=== PATIENT | male | born 1950 | race Caucasian/White ===

== ENCOUNTER 2019-12-17 01:33 | Outpatient (CLI) | payer MEDICARE, SELFPAY ==
[2019-12-17 19:02] LABS: SARS-CoV-2 RNA PCR Negative
== END 2019-12-17 01:34 | disposition home or self-care (01) ==
LOC: ANHCOVIDDT 01:37
PROVIDERS: Visit Provider Internal Medicine Gastroenterology
DX: Z01.812 Encounter for preprocedural laboratory examination (principal); Z20.828 Contact with and (suspected) exposure to other viral communicable diseases
CPT/HCPCS: 87635; C9803; U0003

== ENCOUNTER 2019-12-19 01:33 | Day surgery (SDC) | payer MEDICARE, SELFPAY ==
[2019-12-16 15:28] VITALS: BMI 27.3
[2019-12-19] MEDS: LACTATED RINGERS 1,000 ML 150 ML IV CONT (08:06)
--- NOTE | 2019-12-19 08:06 | P.CONGI_ITS ---
Assessment and Plan Assessment and plan (1) Dysphagia: Code(s): R13.10 - Dysphagia, unspecified Status: Acute Assessment and Plan: Patient has difficulty swallowing including recent food impaction passed spon taneously. All suspicious for narrowing of the esophagus. Plan is for EGD to assess more thoroughly. Possibly for esophageal dilatation as well. Further recommendations will be given after endoscopy. GI Consult Note Consult date/time: 12/19/19 08:06 HPI: John Iniguez is a 69 year old male Seen in evaluation at the request of Steve Jeter. patient has a history of a food impaction 1 week ago. This passed spontaneously. Patient has intermittent dysphagia over the last 1 year. Food will typically pass on its own. He notices difficulty with solid more so than liquids. He has had difficulty with bread hanging up in the mid chest. Patient denies any heartburn or abdominal pain. Past medical history significant for diabetes, spinal stenosis. He uses a walker to ambulate. Review of Systems Review of Systems: All systems reviewed & are unremarkable except as noted in HPI and below PMFSH Social History Social History Smoking packs per day: 3 Smoking cigarettes per day: 60.0 Years smoked: 20 Smoking pack-years: 60.00 Smoking status: Former smoker Tobacco type: cigarettes Alcohol intake: never Substance use: never Substance use type: does not use Living arrangements: with family Spiritual care concerns: No Meds Home Medications and Allergies Home Medications Medication Instructions Recorded Confirmed Type amlodipine 10 mg PO DAILY 12/16/19 12/16/19 History atorvastatin 40 mg PO DAILY 12/16/19 12/16/19 History cilostazol 100 mg PO DAILY 12/16/19 12/19/19 History iiinzjdnlay-zroolbjwv-fswkayuz 1 inh INHALATION DAILY 12/16/19 12/16/19 History [Trelegy Ellipta] irbesartan 300 mg PO DAILY 12/16/19 12/16/19 History isosorbide mononitrate 30 mg PO DAILY 12/16/19 12/16/19 History metformin 500 mg PO DAILY 12/16/19 12/16/19 History metoprolol succinate 100 mg PO DAILY 12/16/19 12/16/19 History ropinirole 0.5 mg PO DAILY 12/16/19 12/19/19 History Allergies Allergy/AdvReac Type Severity Reaction Status Date / Time No Known Allergies Allergy Verified 12/19/19 07:51 Exam Narrative: Exam Narrative: Physical exam reveals patient to be alert. Vital signs stable. HEENT exam unremarkable. Lungs are clear to auscultation and percussion. Heart without murmur or extra sounds. Abdominal exam bowel sounds are present soft nontender with no organomegaly. Digital external rectal exam is normal.
[2019-12-19 08:09] VITALS: BP 142/80; PULSE 65; RESP 20; TEMP 36.6; O2SAT 93
--- NOTE | 2019-12-19 08:32 | WPDANESEPPF ---
Anes - Initial Pre Proc Eval Procedure: Operation Date: 12/19/19 08:30 Proposed Procedures p Esophagogastroduodenoscopy - Fam Guo MD Date/Time: 12/19/19 08:32 Surgeon: Fam Guo MD Pre Op Diagnosis: Dysphagia Patient Data Age: 69 Gender: M Height: 5 ft 11 in Weight: 88.5 kg Last Vital Signs Temp 97.8 F 12/19/19 08:09 Pulse 65 12/19/19 08:09 Resp 20 12/19/19 08:09 BP 142/80 H 12/19/19 08:09 Pulse Ox 93 12/19/19 08:09 Allergies Allergy/AdvReac Type Severity Reaction Status Date / Time No Known Allergies Allergy Verified 12/19/19 07:51 Home Medications Medication Instructions Recorded Confirmed Type amlodipine 10 mg PO DAILY 12/16/19 12/16/19 History atorvastatin 40 mg PO DAILY 12/16/19 12/16/19 History cilostazol 100 mg PO DAILY 12/16/19 12/19/19 History achbgjcruya-xwvzqsnxf-jbibhmvd 1 inh INHALATION DAILY 12/16/19 12/16/19 History [Trelegy Ellipta] irbesartan 300 mg PO DAILY 12/16/19 12/16/19 History isosorbide mononitrate 30 mg PO DAILY 12/16/19 12/16/19 History metformin 500 mg PO DAILY 12/16/19 12/16/19 History metoprolol succinate 100 mg PO DAILY 12/16/19 12/16/19 History ropinirole 0.5 mg PO DAILY 12/16/19 12/19/19 History Patient hx anesthesia problems: none Family hx anesthesia problems: none [facility] Past Medical History Medical History (Updated 12/19/19 @ 08:31 by Eamon Colon MD) CAD (coronary artery disease) COPD (chronic obstructive pulmonary disease) Diabetes Hyperlipidemia Hypertension Surgical History Surgical History (Updated 12/19/19 @ 08:31 by Eamon Colon MD) S/P CABG x 3 Stented coronary artery Social History Social History Smoking packs per day: 3 Smoking cigarettes per day: 60.0 Years smoked: 20 Smoking pack-years: 60.00 Smoking status: Former smoker Tobacco type: cigarettes Alcohol intake: never Substance use: never Substance use type: does not use Living arrangements: with family Spiritual care concerns: No Anes - Eval Final PreProcedure Day of Procedure 12/19/19 08:32 Patient weight: overweight Heart: regular rate and rhythm Lungs: clear to auscultation Airway: Mallampati scale class III Neurological: alert and oriented Last oral intake: >/= 8 hours ASA classification: III Emergent: no Anesthetic plan: proceed Anesthesia type and monitoring: general GIVS and standard monitoring Informed Consent: The patient's anesthetic plan and its attendant risks and benefits were discussed with the patient/family/POA. Questions were solicited and answers provided to the satisfaction of the patient/family/POA.
[2019-12-19 09:03] VITALS: BP 82/6; PULSE 57; RESP 20; O2SAT 93
[2019-12-19 09:13] VITALS: BP 111/74; PULSE 62; RESP 18; O2SAT 94
[2019-12-19 09:15] LABS: Glucose Point of Care 103 (65-105)
[2019-12-19 09:23] VITALS: BP 124/70; PULSE 62; RESP 18; O2SAT 96
== END 2019-12-19 09:55 | disposition home or self-care (01) ==
PROVIDERS: PCP Internal Medicine; Visit Provider Internal Medicine Gastroenterology
PROC: 0DJ08ZZ Inspection of Upper Intestinal Tract, Via Natural or Artificial Opening Endoscopic (ICD-10-PCS; CPT 43235; principal; 2019-12-19 08:30)
DX: K22.2 Esophageal obstruction (principal); K29.80 Duodenitis without bleeding; E11.9 Type 2 diabetes mellitus without complications; M48.00 Spinal stenosis, site unspecified; Z87.891 Personal history of nicotine dependence
CPT/HCPCS: 43450; 43239; 87081; J2704; J7120

== ENCOUNTER 2020-02-14 01:45 | Outpatient (CLI) | payer MEDICARE, SELFPAY ==
[2020-02-14 20:00] LABS: SARS-CoV-2 RNA PCR Negative
== END 2020-02-14 01:46 | disposition home or self-care (01) ==
LOC: ANHCOVIDDT 01:45
PROVIDERS: Visit Provider Internal Medicine Gastroenterology
DX: Z01.812 Encounter for preprocedural laboratory examination (principal); Z20.828 Contact with and (suspected) exposure to other viral communicable diseases
CPT/HCPCS: 87635; C9803; U0003

== ENCOUNTER 2020-02-17 02:16 | Day surgery (SDC) | payer MEDICARE, SELFPAY ==
[2020-02-12 12:41] VITALS: BMI 27.3
[2020-02-17 07:29] VITALS: BP 163/93; PULSE 81; RESP 16; TEMP 36.8; O2SAT 93
[2020-02-17] MEDS: LACTATED RINGERS 1,000 ML 150 ML IV CONT (07:41)
--- NOTE | 2020-02-17 07:42 | P.PNAN_ITS ---
Anes - Initial Pre Proc Eval Procedure: Operation Date: 02/17/20 08:30 Proposed Procedures p Esophagogastroduodenoscopy - Fam Guo MD Date/Time: 02/17/20 07:42 Surgeon: Fam Guo MD Pre Op Diagnosis: Dysphagia/ Esophageal Stricture Patient Data Age: 69 Gender: M Height: 1.8 m Weight: 91 kg Last Vital Signs Temp 36.8 C 02/17/20 07:29 Pulse 81 02/17/20 07:29 Resp 16 02/17/20 07:29 BP 163/93 H 02/17/20 07:29 Pulse Ox 93 02/17/20 07:29 Allergies Allergy/AdvReac Type Severity Reaction Status Date / Time No Known Allergies Allergy Verified 02/17/20 07:18 Home Medications Medication Instructions Recorded Confirmed Type amlodipine 10 mg PO DAILY 12/16/19 02/12/20 History atorvastatin 40 mg PO DAILY 12/16/19 02/12/20 History goqvsxrfmjw-idvwmosif-hpovcctd 1 inh INHALATION DAILY 12/16/19 02/17/20 History [Trelegy Ellipta] irbesartan 300 mg PO DAILY 12/16/19 02/12/20 History isosorbide mononitrate 30 mg PO DAILY 12/16/19 02/12/20 History metformin 500 mg PO DAILY 12/16/19 02/12/20 History metoprolol succinate 100 mg PO DAILY 12/16/19 02/12/20 History ropinirole 0.5 mg PO DAILY 12/16/19 02/12/20 History Patient hx anesthesia problems: none Family hx anesthesia problems: none [facility] Past Medical History Medical History (Updated 12/19/19 @ 08:31 by Eamon Colon MD) CAD (coronary artery disease) COPD (chronic obstructive pulmonary disease) Diabetes Hyperlipidemia Hypertension Surgical History Surgical History (Updated 12/19/19 @ 08:31 by Eamon Colon MD) S/P CABG x 3 Stented coronary artery Social History Social History Smoking packs per day: 3 Smoking cigarettes per day: 60.0 Years smoked: 30 Smoking pack-years: 90.00 Smoking status: Former smoker Tobacco type: cigarettes Alcohol intake: never Substance use: never Substance use type: does not use Living arrangements: with family Spiritual care concerns: No Anes - Eval Final PreProcedure Day of Procedure 02/17/20 07:42 Patient weight: overweight Heart: regular rate and rhythm Lungs: clear to auscultation and normal air movement Airway: Mallampati scale class II Neurological: alert and oriented Last oral intake: >/= 8 hours ASA classification: III Emergent: no Anesthetic plan: proceed Anesthesia type and monitoring: general GIVS Informed Consent: The patient's anesthetic plan and its attendant risks and benefits were discussed with the patient/family/POA. Questions were solicited and answers provided to the satisfaction of the patient/family/POA.
[2020-02-17 07:49] LABS: Glucose Point of Care 115 (65-105)
--- NOTE | 2020-02-17 07:55 | WPDGICN ---
Assessment and Plan Assessment and plan (1) Dysphagia: Code(s): R13.10 - Dysphagia, unspecified Status: Acute (2) Esophageal stricture: Code(s): K22.2 - Esophageal obstruction Status: Acute Assessment and Plan: Patient has a known esophageal ulcer and stricture in the midesophagus. This presumed to be from acid reflux. Other etiologies can't are not excluded plan is for surveillance EGD at this time. Patient continues to have difficulty swallowing. Additional dilatation may be required. For the and present interval would advise continuing proton pump inhibitor on a daily basis. Avoid nonsteroidal anti-inflammatory agents. Soft diet till EGD can be accomplished. GI Consult Note Consult date/time: 02/17/20 07:55 HPI: John Iniguez is a 69 year old male Presents for follow-up EGD. Patient complains of dysphagia. He states that food will hang up in the mid substernal portion of the chest. He states his happens more often with solids than with liquids. He has minimal discomfort at this time. Patient does have a past history endoscopy revealed a mid esophageal ulceration is what L as mid esophageal stricture ring. Patient has been maintained on Prilosec 20 mg p.o. daily since that time. He will present today after 2 months of omeprazole to see if this continues to improve. Patient's family history is noncontributory. Review of Systems Review of Systems: All systems reviewed & are unremarkable except as noted in HPI and below PMFSH Past Medical History Medical History CAD (coronary artery disease) COPD (chronic obstructive pulmonary disease) Diabetes Hyperlipidemia Hypertension Surgical History Surgical History (Updated 12/19/19 @ 08:31 by Eamon Colon MD) S/P CABG x 3 Stented coronary artery Social History Social History Smoking packs per day: 3 Smoking cigarettes per day: 60.0 Years smoked: 30 Smoking pack-years: 90.00 Smoking status: Former smoker Tobacco type: cigarettes Alcohol intake: never Substance use: never Substance use type: does not use Living arrangements: with family Spiritual care concerns: No Meds Home Medications and Allergies Home Medications Medication Instructions Recorded Confirmed Type amlodipine 10 mg PO DAILY 12/16/19 02/12/20 History atorvastatin 40 mg PO DAILY 12/16/19 02/12/20 History ckjfiphhcec-dtbrccpso-dmkhwiyf 1 inh INHALATION DAILY 12/16/19 02/17/20 History [Trelegy Ellipta] irbesartan 300 mg PO DAILY 12/16/19 02/12/20 History isosorbide mononitrate 30 mg PO DAILY 12/16/19 02/12/20 History metformin 500 mg PO DAILY 12/16/19 02/12/20 History metoprolol succinate 100 mg PO DAILY 12/16/19 02/12/20 History ropinirole 0.5 mg PO DAILY 12/16/19 02/12/20 History Allergies Allergy/AdvReac Type Severity Reaction Status Date / Time No Known Allergies Allergy Verified 02/17/20 07:18 Vital Signs Vital Signs - 24 hr 02/17/20 07:29 Temperature 98.2 F Pulse Rate 81 Respiratory Rate 16 Blood Pressure 163/93 H Pulse Oximetry 93 Exam Narrative: Exam Narrative: Physical exam reveals patient be alert. Vital signs stable. HEENT exam is unremarkable. Lungs are clear to auscultation and percussion. Heart is without murmur or extra sounds. Abdominal exam bowel sounds are present soft nontender with no organomegaly. Digital external rectal exam normal.
[2020-02-17] MEDS: BENZOCAINE (*SP) 60 ML SPRAY CAN (HURRICAINE) 1 SPRAY MUCOUS MEM (08:28)
[2020-02-17 08:37] VITALS: BP 151/72; PULSE 84; RESP 16; O2SAT 95
[2020-02-17 08:47] VITALS: BP 152/78; PULSE 83; RESP 16; O2SAT 95
[2020-02-17 08:57] VITALS: BP 146/78; PULSE 82; RESP 16; O2SAT 95
== END 2020-02-17 09:17 | disposition home or self-care (01) ==
PROVIDERS: Visit Provider Internal Medicine Gastroenterology
PROC: 0DJ08ZZ Inspection of Upper Intestinal Tract, Via Natural or Artificial Opening Endoscopic (ICD-10-PCS; CPT 43235; principal; 2020-02-17 08:30)
DX: R13.10 Dysphagia, unspecified (principal); K22.2 Esophageal obstruction; K22.10 Ulcer of esophagus without bleeding; Z79.01 Long term (current) use of anticoagulants; I25.10 Atherosclerotic heart disease of native coronary artery without angina pectoris; J44.9 Chronic obstructive pulmonary disease, unspecified; E11.9 Type 2 diabetes mellitus without complications; I10 Essential (primary) hypertension; E78.5 Hyperlipidemia, unspecified; Z95.1 Presence of aortocoronary bypass graft; Z87.891 Personal history of nicotine dependence; Z95.5 Presence of coronary angioplasty implant and graft; Z79.84 Long term (current) use of oral hypoglycemic drugs
CPT/HCPCS: 43450; 43235; J2704; J7120

== ENCOUNTER 2020-10-02 03:14 | Day surgery (SDC) | payer MEDICARE, SELFPAY ==
[2020-09-24 10:30] VITALS: BMI 26.1
--- NOTE | 2020-10-02 10:08 | WPDANESEPPF ---
Anes - Initial Pre Proc Eval Procedure: Operation Date: 10/02/20 11:30 Proposed Procedures p Esophagogastroduodenoscopy - Fam Guo MD Date/Time: 10/02/20 10:08 Surgeon: Fam Guo MD Pre Op Diagnosis: dysphagia Patient Data Age: 70 Gender: M Height: 1.8 m Weight: 85 kg Allergies Allergy/AdvReac Type Severity Reaction Status Date / Time No Known Allergies Allergy Verified 10/02/20 10:37 Home Medications Medication Instructions Recorded Confirmed Type amlodipine 10 mg PO DAILY 12/16/19 10/02/20 History atorvastatin 40 mg PO DAILY 12/16/19 10/02/20 History sfpmdsjmwst-pyocoskdv-rhpqfnll 1 inh INHALATION DAILY 12/16/19 10/02/20 History [Trelegy Ellipta] irbesartan 300 mg PO DAILY 12/16/19 10/02/20 History isosorbide mononitrate 30 mg PO DAILY 12/16/19 10/02/20 History metformin 500 mg PO DAILY 12/16/19 10/02/20 History metoprolol succinate 100 mg PO DAILY 12/16/19 10/02/20 History glucosamine sulfate [Glucosamine] 500 mg PO DAILY 09/24/20 10/02/20 History ropinirole 1 mg PO DAILY 09/24/20 10/02/20 History Patient hx anesthesia problems: none Family hx anesthesia problems: none PMFSH Past Medical History Medical History CAD (coronary artery disease) COPD (chronic obstructive pulmonary disease) Diabetes Hyperlipidemia Hypertension Surgical History Surgical History (Updated 12/19/19 @ 08:31 by Eamon Colon MD) S/P CABG x 3 Stented coronary artery Social History Social History Smoking packs per day: 3 Smoking cigarettes per day: 60.0 Years smoked: 30 Smoking pack-years: 90.00 Smoking status: Former smoker Tobacco type: cigarettes Alcohol intake: current Alcohol use details: SELDOM Substance use: never Substance use type: does not use Living arrangements: with family Spiritual care concerns: No Anes - Eval Final PreProcedure Day of Procedure 10/02/20 10:08 Patient weight: overweight Heart: regular rate and rhythm Lungs: clear to auscultation and normal air movement Airway: Mallampati scale class II Neurological: alert and oriented Last oral intake: >/= 8 hours ASA classification: III Emergent: no Anesthetic plan: proceed Anesthesia type and monitoring: general GIVS Informed Consent: The patient's anesthetic plan and its attendant risks and benefits were discussed with the patient/family/POA. Questions were solicited and answers provided to the satisfaction of the patient/family/POA.
[2020-10-02 10:35] LABS: Glucose Point of Care 101 mg/dl (65-105)
[2020-10-02 10:40] VITALS: BP 167/92; PULSE 71; RESP 20; TEMP 36.4; O2SAT 92
[2020-10-02] MEDS: LACTATED RINGERS 1,000 ML 150 ML IV CONT (10:55)
--- NOTE | 2020-10-02 11:22 | WPDGICN ---
Assessment and Plan Assessment and plan (1) Dysphagia: Code(s): R13.10 - Dysphagia, unspecified Status: Acute Assessment and Plan: Patient with recurrent difficulty swallowing. Plan is for EGD and additional dilatation if required. Midesophageal stricture is noted somewhat unusual for acid reflux. Further dilatation and biopsy is anticipated. (2) Esophageal stricture: Code(s): K22.2 - Esophageal obstruction Status: Acute Assessment and Plan: Patient known to have esophageal stricture since November 2019. Plan to continue PPI therapy. Follow-up EGD with additional dilatation plan. GI Consult Note Consult date/time: 10/02/20 11:22 HPI: John Iniguez is a 70 year old male Complains of difficulty swallowing. Patient known to have midesophageal stricture that was identified in November 2019. This is required dilatation on several occasions. He has been maintained on proton pump inhibitor therapy since that time. patient has done well after his most recent dilatation. Over the last 1 month has begun to notice food hanging in the mid chest. States this happens predominantly with larger pieces of food. He denies any significant burning. He has had no weight loss or bleeding. Patient presents today for follow-up EGD and additional dilatation if necessary. Review of Systems Review of Systems: All systems reviewed & are unremarkable except as noted in HPI and below PMFSH Past Medical History Medical History CAD (coronary artery disease) COPD (chronic obstructive pulmonary disease) Diabetes Hyperlipidemia Hypertension Surgical History Surgical History (Updated 12/19/19 @ 08:31 by Eamon Colon MD) S/P CABG x 3 Stented coronary artery Social History Social History Smoking packs per day: 3 Smoking cigarettes per day: 60.0 Years smoked: 30 Smoking pack-years: 90.00 Smoking status: Former smoker Tobacco type: cigarettes Alcohol intake: current Alcohol use details: SELDOM Substance use: never Substance use type: does not use Living arrangements: with family Spiritual care concerns: No Meds Home Medications and Allergies Home Medications Medication Instructions Recorded Confirmed Type amlodipine 10 mg PO DAILY 12/16/19 10/02/20 History atorvastatin 40 mg PO DAILY 12/16/19 10/02/20 History trnqkaxgmcp-bsvlgataf-ymubnltv 1 inh INHALATION DAILY 12/16/19 10/02/20 History [Trelegy Ellipta] irbesartan 300 mg PO DAILY 12/16/19 10/02/20 History isosorbide mononitrate 30 mg PO DAILY 12/16/19 10/02/20 History metformin 500 mg PO DAILY 12/16/19 10/02/20 History metoprolol succinate 100 mg PO DAILY 12/16/19 10/02/20 History glucosamine sulfate [Glucosamine] 500 mg PO DAILY 09/24/20 10/02/20 History ropinirole 1 mg PO DAILY 09/24/20 10/02/20 History Allergies Allergy/AdvReac Type Severity Reaction Status Date / Time No Known Allergies Allergy Verified 10/02/20 10:37 Vital Signs Vital Signs - 24 hr 10/02/20 10:40 Temperature 97.6 F Pulse Rate 71 Respiratory Rate 20 Blood Pressure 167/92 H Pulse Oximetry 92 Exam Narrative: Physical exam reveals patient to be alert. Vital signs stable. HEENT exam is unremarkable. Patient is anicteric. Lungs are clear to auscultation and percussion. Heart is without murmur or extra sounds. Abdominal exam bowel sounds are present soft nontender with no organomegaly. Digital external rectal exam deferred today.
[2020-10-02 11:55] VITALS: BP 155/79; PULSE 71; RESP 20; O2SAT 93
[2020-10-02 12:05] VITALS: BP 156/84; PULSE 68; RESP 22; O2SAT 93
[2020-10-02 12:15] VITALS: BP 174/93; PULSE 69; RESP 17; O2SAT 92
--- NOTE | 2020-10-02 13:31 | SUR.PREOP ---
Consent obtained from daughter Sharmila this morning.
--- NOTE | 2020-10-02 13:32 | SUR.PHASEII ---
Report called to Johny at [facility] and updated Sharmila at home on patient status.
== END 2020-10-02 12:37 | disposition home or self-care (01) ==
PROVIDERS: Visit Provider Internal Medicine Gastroenterology
PROC: 0DJ08ZZ Inspection of Upper Intestinal Tract, Via Natural or Artificial Opening Endoscopic (ICD-10-PCS; CPT 43235; principal; 2020-10-02 11:30)
DX: Q39.4 Esophageal web (principal); K22.2 Esophageal obstruction; R13.10 Dysphagia, unspecified; K44.9 Diaphragmatic hernia without obstruction or gangrene; I25.10 Atherosclerotic heart disease of native coronary artery without angina pectoris; J44.9 Chronic obstructive pulmonary disease, unspecified; I10 Essential (primary) hypertension; E11.9 Type 2 diabetes mellitus without complications; E78.5 Hyperlipidemia, unspecified; Z95.5 Presence of coronary angioplasty implant and graft; Z95.1 Presence of aortocoronary bypass graft; Z87.891 Personal history of nicotine dependence
CPT/HCPCS: 43235; 43450; 82948; J2001; J2704; J7120